=== PATIENT | female | born 1960 | race Caucasian/White ===

== ENCOUNTER 2022-01-11 01:25 | Day surgery (SDC) | payer BC, SELFPAY ==
--- NOTE | 2022-01-01 14:11 | PC.NURSE ---
Left message regarding need to return call at [phone] for upcoming procedure information.
[2022-01-03 08:53] VITALS: BMI 36.1
[2022-01-11 08:34] VITALS: BP 125/67; PULSE 74; RESP 18; TEMP 36.1; O2SAT 96
[2022-01-11] MEDS: LACTATED RINGERS 1,000 ML 150 ML IV CONT (08:49)
--- NOTE | 2022-01-11 08:57 | P.PNAN_ITS ---
Anes - Initial Pre Proc Eval Procedure: Operation Date: 01/11/22 10:00 Proposed Procedures p Screening Colonoscopy - Josh Menendez MD Date/Time: 01/11/22 08:57 Surgeon: Josh Menendez MD Pre Op Diagnosis: hx colon polyps, family hx colon ca, neoplasm Patient Data Age: 61 Gender: F Height: 1.66 m Weight: 100.4 kg Last Vital Signs Temp 97 F L 01/11/22 08:34 Pulse 74 01/11/22 08:34 Resp 18 01/11/22 08:34 BP 125/67 01/11/22 08:34 Pulse Ox 96 01/11/22 08:34 O2 Del Method Room Air 01/11/22 08:34 Allergies Allergy/AdvReac Type Severity Reaction Status Date / Time venlafaxine [From Effexor] AdvReac Dry Mouth Verified 01/11/22 08:33 Anxiety medication AdvReac Dry Mouth Uncoded 01/11/22 08:33 Home Medications Medication Instructions Recorded Confirmed Type albuterol sulfate 90 mcg/actuation 1 inh inhalation QID PRN Wheezing 01/03/22 01/03/22 History aerosol inhaler (ProAir HFA) bupropion HCl 300 mg 24 hr tablet, 300 mg PO QAM 01/03/22 01/03/22 History extended release buspirone 15 mg tablet 15 mg PO BID 01/03/22 01/03/22 History escitalopram oxalate 10 mg tablet 10 mg PO DAILY 01/03/22 01/03/22 History famotidine 20 mg tablet (Acid 20 mg PO BID 01/03/22 01/03/22 History Denture Technician (famotidine)) fluticasone propionate 50 1 spray intranasal BID 01/03/22 01/03/22 History mcg/actuation nasal spray,suspension levothyroxine 150 mcg capsule 150 mcg PO DAILY 01/03/22 01/03/22 History montelukast 10 mg tablet 10 mg PO HS 01/03/22 01/03/22 History pramipexole 0.25 mg tablet 0.25 mg PO DAILY 01/03/22 01/03/22 History trazodone 100 mg tablet 100 mg PO HS 01/03/22 01/03/22 History Patient hx anesthesia problems: none Family hx anesthesia problems: none Results Review: All pre-operative results and documents have been reviewed as part of the pre- operative evaluation. [facility] Social History Social History Living arrangements: with family Lilibeth Mayer Final PreProcedure Day of Procedure 01/11/22 08:57 Patient weight: obese Heart: regular rate and rhythm Lungs: clear to auscultation Airway: Mallampati scale class III Neurological: alert and oriented Last oral intake: >/= 8 hours ASA classification: III Emergent: no Anesthetic plan: proceed Anesthesia type and monitoring: general GIVS and standard monitoring Results Review: All pre-operative results and documents have been reviewed as part of the pre- operative evaluation. Informed Consent: The patient's anesthetic plan and its attendant risks and benefits were discussed with the patient/family/POA. Questions were solicited and answers provided to the satisfaction of the patient/family/POA.
--- NOTE | 2022-01-11 09:37 | PM.HPGS ---
History of Present Illness History of Present Illness Consent: Risks, benefits, and alternatives have been discussed and questions answered. Patient agrees to proceed with procedure. Chief complaint: hx colon polyps, family hx colon ca, neoplasm Narrative: Ethel Kimbrough is a 61 year old female here for colonoscopy, had colon polyp 10 years ago and 5 years ago was normal. Review of Systems Constitutional: Constitutional: Denies headache(s) and Denies weakness Eyes: Eyes: Denies blurry vision ENT: Reports Normal hearing present, Denies headache(s) and Denies neck pain Cardiovascular: Cardiovascular: Denies chest pain and Denies dyspnea Respiratory: Respiratory: Denies dyspnea Gastrointestinal: Gastrointestinal: Reports no additional gastrointestinal complaints Genitourinary: Genitourinary: Denies dysuria Musculoskeletal: Musculoskeletal: Denies neck pain Integumentary/Breasts: Skin/Breast: Denies dry skin Neurologic: Reports Normal hearing present, Denies headache(s) and Denies weakness Psychiatric: Psychiatric: Denies anxiety Endocrine: Endocrine: Denies change in body appearance Hematologic/Lymphatic: Hematologic/Lymphatic: Denies easy bleeding Allergic/Immunologic: Allergic/Immunologic: Denies urticaria PMFSH Past Medical History Medical History (Updated 01/11/22 @ 09:38 by Josh Menendez MD) Adenomatous colon polyp Social History Social History Living arrangements: with family Meds Home Medications and Allergies Home Medications Medication Instructions Recorded Confirmed Type albuterol sulfate 90 mcg/actuation 1 inh inhalation QID PRN Wheezing 01/03/22 01/03/22 History aerosol inhaler (ProAir HFA) bupropion HCl 300 mg 24 hr tablet, 300 mg PO QAM 01/03/22 01/03/22 History extended release buspirone 15 mg tablet 15 mg PO BID 01/03/22 01/03/22 History escitalopram oxalate 10 mg tablet 10 mg PO DAILY 01/03/22 01/03/22 History famotidine 20 mg tablet (Acid 20 mg PO BID 01/03/22 01/03/22 History Ribbon Blockmaker (famotidine)) fluticasone propionate 50 1 spray intranasal BID 01/03/22 01/03/22 History mcg/actuation nasal spray,suspension levothyroxine 150 mcg capsule 150 mcg PO DAILY 01/03/22 01/03/22 History montelukast 10 mg tablet 10 mg PO HS 01/03/22 01/03/22 History pramipexole 0.25 mg tablet 0.25 mg PO DAILY 01/03/22 01/03/22 History trazodone 100 mg tablet 100 mg PO HS 01/03/22 01/03/22 History Allergies Allergy/AdvReac Type Severity Reaction Status Date / Time venlafaxine [From Effexor] AdvReac Dry Mouth Verified 01/11/22 08:33 Anxiety medication AdvReac Dry Mouth Uncoded 01/11/22 08:33 Vital Signs Vital Signs - 24 hr 01/11/22 08:34 Temperature 97 F L Pulse Rate 74 Respiratory Rate 18 Blood Pressure 125/67 Pulse Oximetry 96 Oxygen Delivery Room Air Exam Const: General: comfortable and no acute distress HENMT: Face/Nose/Sinus: Normal nares present Eyes: General: appearance normal, both eyes and all related structures Neck: Neck: no JVD Resp: Auscultation: clear to auscultation bilaterally Cardio: Rate: regular rate Rhythm: regular rhythm GI: Inspection: non-distended GI Palp: Yes Soft to palpation Skin: General skin exam: normal color Neuro: General: gait normal Speech: normal speech Extrem: General: normal to inspection Psych: Mental Status: mental status grossly normal Assessment and Plan Assessment and plan (1) Adenomatous colon polyp: Code(s): D12.6 - Benign neoplasm of colon, unspecified Status: Acute Assessment and Plan: colonoscopy
[2022-01-11 10:01] VITALS: BP 113/76; PULSE 62; RESP 19; O2SAT 98
[2022-01-11 10:11] VITALS: BP 140/68; PULSE 57; RESP 13; O2SAT 100
[2022-01-11 10:21] VITALS: BP 121/75; PULSE 58; RESP 14; O2SAT 100
== END 2022-01-11 10:33 | disposition home or self-care (01) ==
PROVIDERS: PCP Internal Medicine Geriatric Medicine; Visit Provider Internal Medicine Gastroenterology
PROC: 0DJD8ZZ Inspection of Lower Intestinal Tract, Via Natural or Artificial Opening Endoscopic (ICD-10-PCS; CPT 45378; principal; 2022-01-11 10:00)
DX: Z12.11 Encounter for screening for malignant neoplasm of colon (principal); K64.8 Other hemorrhoids; Z86.010 Personal history of colon polyps; Z79.51 Long term (current) use of inhaled steroids; E66.9 Obesity, unspecified; Z68.36 Body mass index [BMI] 36.0-36.9, adult
CPT/HCPCS: 45378; J2704; J7120